=== PATIENT | male | born 1935 | race Caucasian/White ===

== ENCOUNTER 2017-09-18 16:36 | Emergency (ER) | payer MEDICARE, OTHER | END 2017-09-18 18:39 | disposition home or self-care (01) | LOC: FTE 16:36 | DX: T16.2XXA Foreign body in left ear, initial encounter (principal); X58.XXXA Exposure to other specified factors, initial encounter; Y92.9 Unspecified place or not applicable | CPT/HCPCS: 69200; 99282-25 ==